=== PATIENT | female | born 1965 | race Two or more races ===

== ENCOUNTER 2017-02-10 08:02 | Emergency (ER) | payer MEDICAID ==
[~2017-02-10] VITALS: Ht 154.9 cm; Wt 75.0 kg
[~2017-02-10 08:02] MED LIST: LISI-167 PO; METF500T4 PO
[2017-02-10 08:04] VITALS: BP 129/80
[2017-02-10 09:00] LABS: HEMOGLOBIN 11.6 g/dL (11.7-16.4)
[2017-02-10 09:16] LABS: BLOOD UREA NITROGEN 16 mg/dL (7-18)
== END 2017-02-10 09:45 | disposition home or self-care (01) ==
LOC: ED 09:24
DX: B34.9 Viral infection, unspecified (principal); E11.9 Type 2 diabetes mellitus without complications; I10 Essential (primary) hypertension; Z88.6 Allergy status to analgesic agent
CPT/HCPCS: 36415; 71020; 80048; 82040; 83605; 85025; 99285

== ENCOUNTER 2017-06-14 16:52 | Emergency (ER) | payer MEDICAID ==
[~2017-06-14] VITALS: Ht 154.9 cm; Wt 74.5 kg
[2017-06-14] MEDS ORDERED: SODIUM CHLORIDE FLUSH 10ML SYR IVF ONE (18:30)
[2017-06-14] MEDS ORDERED: SODIUM CHLORIDE 0.9% 1,000ML IVBOLUS ONE (18:30)
[2017-06-14] MEDS ORDERED: PROCHLORPERAZINE 5 MG/ML, 2ML IVPush ONE (18:30)
[2017-06-14] MEDS ORDERED: KETOROLAC 30 MG/1 ML IVPush ONE (18:30)
[2017-06-14] MEDS ORDERED: DIPHENHYDRAMINE 50 MG/ML, 1ML IVPush ONE (18:30)
[2017-06-14] MEDS ORDERED: KETOROLAC 30 MG/1 ML ONE (18:35)
[2017-06-14] MEDS ORDERED: DIPHENHYDRAMINE 50 MG/ML, 1ML ONE (18:35)
[2017-06-14 19:13] LABS: BLOOD UREA NITROGEN 20 mg/dL (7-18)
[2017-06-14 19:59] VITALS: BP 124/81
== END 2017-06-14 20:08 | disposition home or self-care (01) ==
LOC: ED 20:03
DX: R51 Headache (principal); J01.00 Acute maxillary sinusitis, unspecified; Z88.8 Allergy status to other drugs, medicaments and biological substances; E11.9 Type 2 diabetes mellitus without complications; I10 Essential (primary) hypertension
CPT/HCPCS: 36415; 76380; 80048; 85025; 96361; 96374; 96375; 99285; J1200; J1885; J7030

== ENCOUNTER 2017-07-27 16:01 | Emergency (ER) | payer MEDICAID, OTHER ==
[~2017-07-27] VITALS: Ht 154.9 cm; Wt 75.3 kg
[2017-07-27] MEDS ORDERED: DIAZEPAM 5 MG/ML, 10ML VIAL IV ONE (17:00)
[2017-07-27] MEDS ORDERED: KETOROLAC 30 MG/1 ML IVPush ONE (17:00)
[2017-07-27] MEDS ORDERED: METOCLOPRAMIDE 5 MG/ML, 2ML IVPush ONE (17:00)
[2017-07-27] MEDS ORDERED: SODIUM CHLORIDE 0.9% 1,000ML IVBOLUS ONE (17:00)
[2017-07-27] MEDS ORDERED: SODIUM CHLORIDE FLUSH 10ML SYR IVF ONE (17:00)
[2017-07-27] MEDS ORDERED: ONDANSETRON 2MG/ML, 2ML IVPush ONE (17:00)
[2017-07-27 17:02] LABS: HEMATOCRIT 36.1 % (34.6-47.8); HEMOGLOBIN 11.6 g/dL (11.7-16.4); WHITE BLOOD COUNT 7.2 x10^3/uL (3.4-10)
[2017-07-27 17:12] LABS: BLOOD UREA NITROGEN 22 mg/dL (7-18)
[2017-07-27 17:15] LABS: ASPARTATE AMINO TRANSFERASE 24 U/L (15-37)
[2017-07-27] MEDS ORDERED: METOCLOPRAMIDE 5 MG/ML, 2ML ONE (17:30)
[2017-07-27] MEDS ORDERED: DIAZEPAM 5 MG/ML, 2ML ONE (17:30)
[2017-07-27] MEDS ORDERED: ONDANSETRON 2MG/ML, 2ML ONE (17:30)
[2017-07-27] MEDS ORDERED: KETOROLAC 30 MG/1 ML ONE (17:30)
[2017-07-27] MEDS ORDERED: DIAZEPAM 5 MG TABLET ONE (18:22)
[2017-07-27 18:26] VITALS: BP 116/78
[2017-07-27] MEDS ORDERED: DIAZEPAM 5 MG TABLET PO ONE (18:30)
== END 2017-07-27 18:42 | disposition home or self-care (01) ==
LOC: ED 17:00
DX: M25.512 Pain in left shoulder (principal); R11.0 Nausea; E11.9 Type 2 diabetes mellitus without complications; I10 Essential (primary) hypertension
CPT/HCPCS: 36415; 80053; 81003; 83690; 85025; 96361; 96374; 96375; 99284; J1885; J2405; J3360; J7030

== ENCOUNTER 2017-09-10 17:01 | Emergency (ER) | payer MEDICAID, OTHER ==
[~2017-09-10] VITALS: Ht 154.9 cm; Wt 76.4 kg
[2017-09-10 19:18] VITALS: BP 163/96
== END 2017-09-10 19:58 | disposition home or self-care (01) ==
LOC: ED 19:20
DX: G44.211 Episodic tension-type headache, intractable (principal); I10 Essential (primary) hypertension; E11.9 Type 2 diabetes mellitus without complications; Z79.84 Long term (current) use of oral hypoglycemic drugs
CPT/HCPCS: 70450; 70486; 72125; 99284

== ENCOUNTER 2017-11-01 20:43 | Emergency (ER) | payer MEDICAID ==
[~2017-11-01] VITALS: Ht 154.9 cm; Wt 78.7 kg
[2017-11-01 20:45] VITALS: BP 169/90
[2017-11-01] MEDS ORDERED: DIPHENHYDRAMINE 25 MG CAPSULE ONE (21:28)
[2017-11-01] MEDS ORDERED: FAMOTIDINE 20 MG TABLET ONE (21:28)
[2017-11-01] MEDS ORDERED: FAMOTIDINE 20 MG TABLET PO ONE (21:30)
[2017-11-01] MEDS ORDERED: DIPHENHYDRAMINE 25 MG CAPSULE PO ONE (21:30)
[2017-11-01 21:41] LABS: HEMATOCRIT 38.5 % (34.6-47.8); HEMOGLOBIN 12.6 g/dL (11.7-16.4); WHITE BLOOD COUNT 5.5 x10^3/uL (3.4-10)
[2017-11-01 21:50] LABS: ASPARTATE AMINO TRANSFERASE 24 U/L (15-37); BLOOD UREA NITROGEN 19 mg/dL (7-18)
== END 2017-11-01 22:20 | disposition home or self-care (01) ==
LOC: ED 22:10
DX: L24.9 Irritant contact dermatitis, unspecified cause (principal); E11.9 Type 2 diabetes mellitus without complications; I10 Essential (primary) hypertension
CPT/HCPCS: 36415; 80053; 85025; 99284; Q0163

== ENCOUNTER 2018-01-24 16:51 | Emergency (ER) | payer MEDICAID ==
[~2018-01-24] VITALS: Ht 154.9 cm; Wt 80.6 kg
[2018-01-24 16:53] VITALS: BP 111/66
[2018-01-24 17:22] LABS: MICROSCOPIC AUTO
[2018-01-24] MEDS ORDERED: MULT-321 PO (17:29)
[2018-01-24 17:37] LABS: CULTURE INDICATED? YES
== END 2018-01-24 18:29 | disposition home or self-care (01) ==
LOC: ED 17:45
DX: N30.90 Cystitis, unspecified without hematuria (principal); B02.9 Zoster without complications
CPT/HCPCS: 81001; 87077; 87086; 87147; 87186; 99284

== ENCOUNTER 2018-02-16 10:50 | Emergency (ER) | payer MEDICAID ==
[~2018-02-16] VITALS: Ht 154.9 cm; Wt 80.1 kg
[~2018-02-16 10:50] MED LIST changes: +MULT-321 PO
[2018-02-16 11:44] LABS: MICROSCOPIC NOT IND
[2018-02-16 11:49] LABS: BASOPHILS # (AUTO) 0.02 x10^3/uL (0-0.1); BASOPHILS % (AUTO) 0 % (0-1); EOSINOPHILS # (AUTO) 0.14 x10^3/uL (0-0.4); EOSINOPHILS % (AUTO) 3 % (1-7); LYMPHOCYTES # (AUTO) 1.64 x10^3/uL (1-3.4); LYMPHOCYTES % (AUTO) 34 % (22-44); MD NO; MEAN CORPUSCULAR HGB CONC 33.4 g/dL (32.4-35.8); MEAN CORPUSCULAR VOLUME 80.9 fL (80-100); MEAN PLATELET VOLUME 8.6 fL (7.4-10.4); MONOCYTES # (AUTO) 0.29 x10^3/uL (0.2-0.8); MONOCYTES % (AUTO) 6 % (2-9); NEUTROPHILS # (AUTO) 2.79 x10^3/uL (1.8-6.8); NEUTROPHILS % (AUTO) 57 % (42-75); PLATELET COUNT 216 x10^3/uL (130-400); RED BLOOD COUNT 4.85 x10^6/uL (3.82-5.3)
[2018-02-16 11:52] LABS: CULTURE INDICATED? NO
[2018-02-16 12:06] LABS: ALBUMIN 3.5 g/dL (3.4-5.0); ANION GAP 7 mmol/L (5-15); CALCIUM 8.6 mg/dL (8.5-10.1); CHLORIDE 104 mmol/L (98-107)
[2018-02-16 14:11] VITALS: BP 123/75
== END 2018-02-16 15:00 | disposition home or self-care (01) ==
LOC: ED 13:44
DX: R10.84 Generalized abdominal pain (principal); I10 Essential (primary) hypertension; E11.9 Type 2 diabetes mellitus without complications
CPT/HCPCS: 36415; 74176; 80048; 81003; 82040; 84703; 85025; 99285

== ENCOUNTER 2018-06-22 16:38 | Emergency (ER) | payer MEDICAID ==
[~2018-06-22] VITALS: Ht 154.9 cm; Wt 162.0 kg
[~2018-06-22 16:38] MED LIST changes: -METF500T4 PO; +METF500T5 PO
[2018-06-22 16:44] VITALS: BP 126/88
[2018-06-22] MEDS ORDERED: IBUPROFEN 200 MG TABLET ONE (17:03)
[2018-06-22] MEDS ORDERED: IBUPROFEN 200 MG TABLET PO ONE (17:30)
== END 2018-06-22 17:51 | disposition home or self-care (01) ==
LOC: ED 17:10
DX: S83.91XA Sprain of unspecified site of right knee, initial encounter (principal); I10 Essential (primary) hypertension; E11.9 Type 2 diabetes mellitus without complications; W18.30XA Fall on same level, unspecified, initial encounter; Y93.64 Activity, baseball; Y99.8 Other external cause status; Y92.320 Baseball field as the place of occurrence of the external cause
CPT/HCPCS: 29505; 99284

== ENCOUNTER 2018-07-09 19:55 | Emergency (ER) | payer SELFPAY ==
[~2018-07-09] VITALS: Ht 154.9 cm; Wt 78.0 kg
[2018-07-09 21:06] VITALS: BP 129/79
[2018-07-09 21:10] LABS: MICROSCOPIC NOT IND
[2018-07-09 21:11] LABS: BASOPHILS # (AUTO) 0.02 x10^3/uL (0-0.1); BASOPHILS % (AUTO) 0 % (0-1); EOSINOPHILS # (AUTO) 0.23 x10^3/uL (0-0.4); EOSINOPHILS % (AUTO) 5 % (1-7); LYMPHOCYTES % (AUTO) 35 % (22-44); MD NO; MEAN CORPUSCULAR HEMOGLOBIN 26.8 pg (27.0-34.8); MEAN CORPUSCULAR HGB CONC 33.1 g/dL (32.4-35.8); MEAN CORPUSCULAR VOLUME 80.9 fL (80-100); MEAN PLATELET VOLUME 9.6 fL (7.4-10.4); MONOCYTES # (AUTO) 0.42 x10^3/uL (0.2-0.8); MONOCYTES % (AUTO) 8 % (2-9); NEUTROPHILS # (AUTO) 2.63 x10^3/uL (1.8-6.8); NEUTROPHILS % (AUTO) 52 % (42-75); PLATELET COUNT 227 x10^3/uL (130-400); RED BLOOD COUNT 4.72 x10^6/uL (3.82-5.3); RED CELL DISTRIBUTION WIDTH 14.6 % (9.6-15.2)
[2018-07-09 21:15] LABS: CULTURE INDICATED? NO
[2018-07-09 21:16] LABS: ACETONE, SERUM Negative (Negative)
[2018-07-09 21:23] LABS: ALANINE AMINOTRANSFERASE 77 U/L (12-78); ALBUMIN 3.6 g/dL (3.4-5.0); ANION GAP 3 mmol/L (5-15); CALCIUM 8.6 mg/dL (8.5-10.1); CHLORIDE 105 mmol/L (98-107); CREATININE 0.92 mg/dL (0.55-1.02)
[2018-07-09 21:25] LABS: ALKALINE PHOSPHATASE 71 U/L (45-117); BILIRUBIN,TOTAL 0.3 mg/dL (0.2-1.0); TOTAL PROTEIN 7.9 g/dL (6.4-8.2); TROPONIN I < 0.015 ng/mL (0.000-0.045)
== END 2018-07-09 22:16 | disposition home or self-care (01) ==
LOC: EDBD → MERGE 21:25 → ED 21:25
DX: R07.89 Other chest pain (principal); E11.65 Type 2 diabetes mellitus with hyperglycemia; Z88.1 Allergy status to other antibiotic agents
CPT/HCPCS: 80053; 81003; 82010; 82800; 82962; 84484; 85025; 93005; 99285

== ENCOUNTER 2018-08-20 13:58 | Observation (INO) | payer MEDICAID ==
[~2018-08-20] VITALS: Ht 154.9 cm; Wt 80.3 kg
[~2018-08-20 13:58] MED LIST changes: +METF500T17 PO; -METF500T5 PO
[2018-08-20] MEDS ORDERED: MECLIZINE CHEWABLE 25 MG TAB ONE (14:17)
[2018-08-20] MEDS ORDERED: ONDANSETRON ODT 4 MG ONE (14:19)
[2018-08-20 14:27] LABS: BASOPHILS % (AUTO) 0 % (0-1); EOSINOPHILS # (AUTO) 0.01 x10^3/uL (0-0.4); EOSINOPHILS % (AUTO) 0 % (1-7); LYMPHOCYTES # (AUTO) 0.58 x10^3/uL (1-3.4); LYMPHOCYTES % (AUTO) 7 % (22-44); MD NO; MEAN CORPUSCULAR HEMOGLOBIN 26.3 pg (27.0-34.8); MEAN CORPUSCULAR HGB CONC 32.7 g/dL (32.4-35.8); MEAN CORPUSCULAR VOLUME 80.3 fL (80-100); MEAN PLATELET VOLUME 9.4 fL (7.4-10.4); MONOCYTES # (AUTO) 0.06 x10^3/uL (0.2-0.8); MONOCYTES % (AUTO) 1 % (2-9); NEUTROPHILS # (AUTO) 7.72 x10^3/uL (1.8-6.8); NEUTROPHILS % (AUTO) 92 % (42-75); PLATELET COUNT 213 x10^3/uL (130-400); RED BLOOD COUNT 4.73 x10^6/uL (3.82-5.3); RED CELL DISTRIBUTION WIDTH 16.8 % (9.6-15.2)
[2018-08-20] MEDS ORDERED: ONDANSETRON ODT 4 MG PO ONE (14:30)
[2018-08-20] MEDS ORDERED: SODIUM CHLORIDE 0.9% 1,000ML IVBOLUS ONE (14:30)
[2018-08-20] MEDS ORDERED: MECLIZINE CHEWABLE 25 MG TAB PO ONE (14:30)
[2018-08-20] MEDS ORDERED: SODIUM CHLORIDE FLUSH 10ML SYR IVF ONE (14:30)
[2018-08-20 14:34] LABS: ALBUMIN 3.4 g/dL (3.4-5.0); ANION GAP 10 mmol/L (5-15); CALCIUM 8.1 mg/dL (8.5-10.1); CHLORIDE 108 mmol/L (98-107); CREATININE 0.72 mg/dL (0.55-1.02)
[2018-08-20] MEDS ORDERED: DIAZEPAM 5 MG/ML, 2ML IV ONE (15:30)
[2018-08-20] MEDS ORDERED: GLUCAGON 1 MG IM PRN (17:00)
[2018-08-20] MEDS ORDERED: ONDANSETRON ODT 4 MG PO PRN (17:00)
[2018-08-20] MEDS ORDERED: BISACODYL 10 MG SUPP PR PRN (17:00)
[2018-08-20] MEDS ORDERED: DOCUSATE 100 MG CAPSULE PO PRN (17:00)
[2018-08-20] MEDS ORDERED: KETOROLAC 30 MG/1 ML IV PRN (17:00)
[2018-08-20] MEDS ORDERED: ONDANSETRON 2MG/ML, 2ML IVPush PRN (17:00)
[2018-08-20] MEDS ORDERED: hydrALAzine 20 MG/ML, 1ML IVPush PRN (17:00)
[2018-08-20] MEDS ORDERED: DEXTROSE 50%, 50ML SYRINGE IVPush PRN (17:00)
[2018-08-20] MEDS ORDERED: DEXTROSE 4 GM TAB.CHEW PO PRN (17:00)
[2018-08-20] MEDS: INSULIN LISPRO 100 UNITS/ML, PEN SQ-INSULIN SCH ×2 (17:00→20:31)
[2018-08-20] MEDS ORDERED: POLYETHYLENE GLYCOL 17 GM PACKET PO PRN (17:00)
[2018-08-20] MEDS ORDERED: DIAZEPAM 5 MG/ML, 10ML VIAL IV PRN (17:00)
[2018-08-20] MEDS ORDERED: PROMETHAZINE 12.5 MG SUPP PR PRN (17:30)
[2018-08-20 18:25] VITALS: BP 148/86
[2018-08-20] MEDS: SODIUM CHLORIDE 0.9% 1,000 ML IV SCH (18:48)
[2018-08-20 20:06] VITALS: BP 128/87
[2018-08-20] MEDS: MECLIZINE CHEWABLE 25 MG TAB PO SCH (20:30)
[2018-08-20] MEDS: FAMOTIDINE 20 MG/2 ML IVPush SCH (20:30)
[2018-08-20] MEDS: ACETAMINOPHEN 325 MG TABLET PO PRN (20:42)
[2018-08-20] MEDS: SODIUM CHLORIDE FLUSH 10ML SYR IVF SCH (21:00)
[2018-08-21] VITALS (8 sets, daily range): BP systolic 117–138; BP diastolic 78–88
[2018-08-21] MEDS: SODIUM CHLORIDE 0.9% 1,000 ML IV SCH ×2 (00:58→05:52)
[2018-08-21 04:58] LABS: BASOPHILS % (AUTO) 0 % (0-1); EOSINOPHILS # (AUTO) 0.04 x10^3/uL (0-0.4); EOSINOPHILS % (AUTO) 1 % (1-7); LYMPHOCYTES # (AUTO) 0.64 x10^3/uL (1-3.4); LYMPHOCYTES % (AUTO) 10 % (22-44); MD NO; MEAN CORPUSCULAR HEMOGLOBIN 26.4 pg (27.0-34.8); MEAN CORPUSCULAR HGB CONC 33.3 g/dL (32.4-35.8); MEAN CORPUSCULAR VOLUME 79.2 fL (80-100); MEAN PLATELET VOLUME 9.1 fL (7.4-10.4); MONOCYTES # (AUTO) 0.08 x10^3/uL (0.2-0.8); MONOCYTES % (AUTO) 1 % (2-9); NEUTROPHILS # (AUTO) 5.65 x10^3/uL (1.8-6.8); NEUTROPHILS % (AUTO) 88 % (42-75); PLATELET COUNT 214 x10^3/uL (130-400); RED BLOOD COUNT 4.59 x10^6/uL (3.82-5.3)
[2018-08-21 05:07] LABS: ANION GAP 9 mmol/L (5-15); CALCIUM 8.1 mg/dL (8.5-10.1); CHLORIDE 110 mmol/L (98-107)
[2018-08-21 05:18] LABS: CREATININE 0.64 mg/dL (0.55-1.02)
[2018-08-21] MEDS: MULTIVITAMIN 1 TABLET PO SCH (08:13)
[2018-08-21] MEDS: MECLIZINE CHEWABLE 25 MG TAB PO SCH ×3 (08:13→20:27)
[2018-08-21] MEDS: LISINOPRIL 10 MG TABLET PO SCH (08:14)
[2018-08-21] MEDS: FAMOTIDINE 20 MG/2 ML IVPush SCH ×2 (08:14→20:27)
[2018-08-21] MEDS: SODIUM CHLORIDE FLUSH 10ML SYR IVF SCH ×2 (08:15→20:29)
[2018-08-21] MEDS: INSULIN LISPRO 100 UNITS/ML, PEN SQ-INSULIN SCH ×4 (08:16→20:28)
[2018-08-21] MEDS: CALCIUM CARBONATE 500 MG TABLET PO SCH ×2 (11:07→20:27)
[2018-08-21] MEDS: ACETAMINOPHEN 325 MG TABLET PO PRN (13:46)
[2018-08-21] MEDS ORDERED: SODIUM CHLORIDE 0.9% 1,000 ML IV SCH (16:58)
[2018-08-21] MEDS ORDERED: DIAZEPAM 5 MG TABLET PO PRN (17:00)
[2018-08-22 02:30] VITALS: BP 126/84
[2018-08-22 04:26] LABS: BASOPHILS # (AUTO) 0.02 x10^3/uL (0-0.1); BASOPHILS % (AUTO) 0 % (0-1); EOSINOPHILS % (AUTO) 0 % (1-7); LYMPHOCYTES # (AUTO) 1.15 x10^3/uL (1-3.4); LYMPHOCYTES % (AUTO) 17 % (22-44); MD NO; MEAN CORPUSCULAR HEMOGLOBIN 26.5 pg (27.0-34.8); MEAN CORPUSCULAR VOLUME 80.4 fL (80-100); MEAN PLATELET VOLUME 9.3 fL (7.4-10.4); MONOCYTES # (AUTO) 0.31 x10^3/uL (0.2-0.8); MONOCYTES % (AUTO) 5 % (2-9); NEUTROPHILS # (AUTO) 5.46 x10^3/uL (1.8-6.8); NEUTROPHILS % (AUTO) 79 % (42-75); PLATELET COUNT 181 x10^3/uL (130-400); RED BLOOD COUNT 4.16 x10^6/uL (3.82-5.3); RED CELL DISTRIBUTION WIDTH 17.3 % (9.6-15.2)
[2018-08-22 04:35] LABS: % IRON SATURATION 6 % (20-55); ANION GAP 9 mmol/L (5-15); CALCIUM 7.8 mg/dL (8.5-10.1); CHLORIDE 114 mmol/L (98-107); CREATININE 0.63 mg/dL (0.55-1.02); IRON LEVEL 19 mcg/dL (50-170); TOTAL IRON BINDING CAPACITY 306 mcg/dL (250-450)
[2018-08-22 04:39] LABS: TRANSFERRIN 260 mg/dL (200-360)
[2018-08-22 07:00] VITALS: BP 138/87
[2018-08-22] MEDS: INSULIN LISPRO 100 UNITS/ML, PEN SQ-INSULIN SCH ×4 (07:00→20:05)
[2018-08-22] MEDS: FAMOTIDINE 20 MG/2 ML IVPush SCH ×2 (08:12→20:03)
[2018-08-22] MEDS: ACETAMINOPHEN 325 MG TABLET PO PRN ×2 (08:12→15:01)
[2018-08-22] MEDS: MECLIZINE CHEWABLE 25 MG TAB PO SCH ×3 (08:12→20:04)
[2018-08-22] MEDS: CALCIUM CARBONATE 500 MG TABLET PO SCH ×2 (08:12→20:03)
[2018-08-22] MEDS: MULTIVITAMIN 1 TABLET PO SCH (08:12)
[2018-08-22] MEDS: LISINOPRIL 10 MG TABLET PO SCH (08:13)
[2018-08-22] MEDS: SODIUM CHLORIDE FLUSH 10ML SYR IVF SCH ×2 (08:59→20:03)
[2018-08-22 15:20] VITALS: BP_SYST 135; BP_SYST 146; BP_DIAS 86; BP_DIAS 97
[2018-08-22] MEDS ORDERED: SUMATRIPTAN 6MG/0.5ML SQ ONE (16:00)
[2018-08-22 20:38] VITALS: BP 133/86
[2018-08-23 00:29] VITALS: BP 116/78
[2018-08-23] MEDS: INSULIN LISPRO 100 UNITS/ML, PEN SQ-INSULIN SCH ×4 (07:00→22:00)
[2018-08-23 07:23] VITALS: BP 127/84
[2018-08-23] MEDS: SODIUM CHLORIDE FLUSH 10ML SYR IVF SCH ×2 (09:00→21:14)
[2018-08-23] MEDS: MULTIVITAMIN 1 TABLET PO SCH (09:00)
[2018-08-23] MEDS: LISINOPRIL 10 MG TABLET PO SCH (10:04)
[2018-08-23] MEDS: MECLIZINE CHEWABLE 25 MG TAB PO SCH ×4 (10:04→21:14)
[2018-08-23] MEDS: CALCIUM CARBONATE 500 MG TABLET PO SCH ×2 (10:04→21:14)
[2018-08-23] MEDS: FAMOTIDINE 20 MG/2 ML IVPush SCH (10:05)
[2018-08-23 12:30] VITALS: BP 136/91
[2018-08-23 20:53] VITALS: BP 143/89
[2018-08-23] MEDS: FAMOTIDINE 20 MG TABLET PO SCH (21:14)
[2018-08-24 02:17] VITALS: BP 132/83
[2018-08-24] MEDS: INSULIN LISPRO 100 UNITS/ML, PEN SQ-INSULIN SCH ×3 (07:00→16:00)
[2018-08-24 07:16] VITALS: BP 151/96
[2018-08-24] MEDS: FAMOTIDINE 20 MG TABLET PO SCH (08:47)
[2018-08-24] MEDS: ACETAMINOPHEN 325 MG TABLET PO PRN ×2 (08:47→13:39)
[2018-08-24] MEDS: MULTIVITAMIN 1 TABLET PO SCH (08:47)
[2018-08-24] MEDS: CALCIUM CARBONATE 500 MG TABLET PO SCH (08:47)
[2018-08-24] MEDS: MECLIZINE CHEWABLE 25 MG TAB PO SCH ×2 (08:47→16:02)
[2018-08-24] MEDS: LISINOPRIL 10 MG TABLET PO SCH (08:48)
[2018-08-24] MEDS: SODIUM CHLORIDE FLUSH 10ML SYR IVF SCH (08:49)
[2018-08-24] MEDS ORDERED: LISI-167 PO (08:57)
[2018-08-24 09:38] LABS: MICROSCOPIC AUTO
[2018-08-24 09:39] LABS: CULTURE INDICATED? NO
[2018-08-24] MEDS ORDERED: FERR325T18 PO (11:51)
[2018-08-24] MEDS ORDERED: IRON SUCROSE COMPLEX 100MG/5ML IV SCH (12:00)
[2018-08-24 12:13] VITALS: BP 142/98
[2018-08-24] MEDS ORDERED: MECL-85 PO (15:29)
[2018-08-24 15:50] VITALS: BP 135/92
[2018-08-24] MEDS ORDERED: ONDA4TAB13 SL (16:13)
== END 2018-08-24 18:58 | disposition home or self-care (01) ==
LOC: ED 15:37 → INTOOBSV 16:30 → EDIP 16:30 → UNDOADMOB 16:30 → EDIP 16:58 → 3NE 17:30 → 4WST 18:09
PROVIDERS: ADMIT Internal Medicine; ATTEND Family Medicine
DX: R55 Syncope and collapse (principal); D50.9 Iron deficiency anemia, unspecified; D68.69 Other thrombophilia; D75.89 Other specified diseases of blood and blood-forming organs; E11.9 Type 2 diabetes mellitus without complications; E28.2 Polycystic ovarian syndrome; E83.51 Hypocalcemia; E87.1 Hypo-osmolality and hyponatremia; E87.6 Hypokalemia; G47.33 Obstructive sleep apnea (adult) (pediatric); H55.09 Other forms of nystagmus; I10 Essential (primary) hypertension; I25.2 Old myocardial infarction; I48.2 Chronic atrial fibrillation; J30.2 Other seasonal allergic rhinitis; N39.0 Urinary tract infection, site not specified; N92.0 Excessive and frequent menstruation with regular cycle; N92.1 Excessive and frequent menstruation with irregular cycle; Z83.3 Family history of diabetes mellitus
CPT/HCPCS: 36415; 70450; 70551; 71045; 80048; 81001; 82040; 82330; 82728; 82962; 83540; 83550; 83735; 84443; 84466; 85014; 85018; 85025; 93005; 93306; 96361; 96372; 96374; 96375; 96376; 97116; 97162; 97166; 97530; 99285; G0378; G8978; G8979; G8980; J1756; J1815; J3030; J3360; J7030; Q0162; S0028

== ENCOUNTER 2019-07-08 18:36 | Emergency (ER) | payer MEDICAID ==
[~2019-07-08] VITALS: Ht 157.5 cm; Wt 80.5 kg
[2019-07-08 23:46] VITALS: BP 130/80
== END 2019-07-08 23:48 | disposition home or self-care (01) ==
LOC: ED 21:05
DX: R10.12 Left upper quadrant pain (principal); G43.C1 Periodic headache syndromes in child or adult, intractable; K85.30 Drug induced acute pancreatitis without necrosis or infection; E11.9 Type 2 diabetes mellitus without complications; I10 Essential (primary) hypertension; Z87.42 Personal history of other diseases of the female genital tract
CPT/HCPCS: 36415; 76700; 80053; 83690; 84484; 85025; 93005; 99284

== ENCOUNTER 2019-12-23 19:48 | Emergency (ER) | payer MEDICAID ==
[~2019-12-23] VITALS: Ht 154.9 cm; Wt 76.6 kg
[~2019-12-23 19:48] MED LIST changes: +FERR325T18 PO; +MECL-85 PO; +ONDA4TAB13 SL
[2019-12-23 20:52] LABS: MICROSCOPIC NOT IND
[2019-12-23 20:54] LABS: BASOPHILS # (AUTO) 0.03 x10^3/uL (0-0.1); BASOPHILS % (AUTO) 1 % (0-1); EOSINOPHILS # (AUTO) 0.21 x10^3/uL (0-0.4); EOSINOPHILS % (AUTO) 5 % (1-7); LYMPHOCYTES # (AUTO) 1.71 x10^3/uL (1-3.4); LYMPHOCYTES % (AUTO) 37 % (22-44); MD NO; MEAN CORPUSCULAR HEMOGLOBIN 29.3 pg (27.0-34.8); MEAN CORPUSCULAR HGB CONC 33.4 g/dL (32.4-35.8); MEAN CORPUSCULAR VOLUME 87.6 fL (80-100); MEAN PLATELET VOLUME 9.2 fL (7.4-10.4); MONOCYTES # (AUTO) 0.38 x10^3/uL (0.2-0.8); MONOCYTES % (AUTO) 8 % (2-9); NEUTROPHILS # (AUTO) 2.29 x10^3/uL (1.8-6.8); NEUTROPHILS % (AUTO) 50 % (42-75); PLATELET COUNT 193 x10^3/uL (130-400); RED BLOOD COUNT 4.62 x10^6/uL (3.82-5.3); RED CELL DISTRIBUTION WIDTH 13.1 % (9.6-15.2)
[2019-12-23 20:57] LABS: CULTURE INDICATED? NO
--- NOTE | 2019-12-23 21:00 | NUR ---
PT RESTING COMFORTABLY. MONITOR IN PLACE. BLANKET PROVIDED.
[2019-12-23 21:10] LABS: ALANINE AMINOTRANSFERASE 40 U/L (12-78); ALBUMIN 3.6 g/dL (3.4-5.0); ANION GAP 5 mmol/L (5-15); CALCIUM 8.9 mg/dL (8.5-10.1); CHLORIDE 107 mmol/L (98-107); CREATININE 0.78 mg/dL (0.55-1.02)
[2019-12-23 21:13] LABS: ALKALINE PHOSPHATASE 75 U/L (45-117); BILIRUBIN,TOTAL 0.3 mg/dL (0.2-1.0); TOTAL PROTEIN 7.9 g/dL (6.4-8.2)
[2019-12-23 21:32] VITALS: BP 129/73
== END 2019-12-23 22:02 | disposition home or self-care (01) ==
LOC: ED 21:30
DX: M79.621 Pain in right upper arm (principal); M79.661 Pain in right lower leg; M79.662 Pain in left lower leg; E11.9 Type 2 diabetes mellitus without complications; I10 Essential (primary) hypertension
CPT/HCPCS: 36415; 80053; 81003; 82550; 83605; 83690; 85025; 93005; 99284

== ENCOUNTER → 2020-05-16 | Outpatient (CLI) | payer BC, MEDICAID | END | disposition home or self-care (01) | LOC: RAD 15:51 | PROVIDERS: ATTEND Obstetrics & Gynecology | DX: N83.202 Unspecified ovarian cyst, left side (principal); R93.89 Abnormal findings on diagnostic imaging of other specified body structures | CPT/HCPCS: 76830 ==

== ENCOUNTER → 2020-10-18 | Outpatient (CLI) | payer BC, MEDICAID | END | disposition home or self-care (01) | LOC: CFH 12:58 | PROVIDERS: ATTEND Internal Medicine | DX: J32.8 Other chronic sinusitis (principal); J34.89 Other specified disorders of nose and nasal sinuses | CPT/HCPCS: 70486 ==